=== PATIENT | female | born 1950 | race Two or more races ===

== ENCOUNTER → 2025-04-13 | Outpatient (CLI) | payer MEDICARE, SELFPAY ==
[2025-04-13 14:48] LABS: Collection Type, Urine Clean Catch; RBC,Urine 0 /hpf (0-3); Squamous Epithelial Cell,Urine 0 /hpf (0-5)
[2025-04-13 16:52] LABS: Amorphous Crystals,Urine Present (Absent); Bilirubin,Urine 2+ (Negative); Blood,Urine Negative (Negative); Glucose, Urine Negative (Negative); Ketones,Urine Negative (Negative); Leukocyte Esterase,Urine Negative (Negative); Nitrite,Urine Positive (Negative); Protein,Urine Trace (Neg - Trace); Specific Gravity,Urine 1.022 (1.001-1.035); WBC,Urine 5 /hpf (0-5)
[2025-04-13 16:56] LABS: Clarity,Urine Cloudy (Clear/Hazy)
[2025-04-13 16:57] LABS: Color,Urine Amber (Lt Yel-Yel)
== END | disposition home or self-care (01) ==
LOC: SLDO 14:37
PROVIDERS: Referring Provider Registered Nurse; Visit Provider Registered Nurse
DX: N39.0 Urinary tract infection, site not specified (principal)
CPT/HCPCS: 81001; 87077; 87086; 87186

== ENCOUNTER → 2025-05-17 | Outpatient (CLI) | payer MEDICARE, SELFPAY ==
--- NOTE | 2025-05-17 14:15 | XR_ITS ---
Examination: Screening digital mammography, bilateral Computer aided detection 3-D breast Tomosynthesis, bilateral Date and time of exam: May 17, 2025 1418 hours Compared to mammograms dating to April 20, 2015 Indication: Screening Technique: Nonmagnified MLO, CC views of the breasts to been obtained, reconstructed from 3-D Tomosynthesis images. R2 computer aided detection program utilized for evaluation of suspicious masses and/or abnormal calcifications. 3-D Tomosynthesis images obtained. Findings: Scattered areas of fibroglandular density. Stable nodule 12:00 position right breast with right breast biopsy marker Nodule in the 12:00 position left breast appears more prominent compared to April 20, 2015 Impression: BI-RADS Category 0: Incomplete: Need additional imaging evaluation Recommend follow-up spot tomographic views of nodule 12:00 position left breast as well as left breast sonography to complete the workup
== END | disposition home or self-care (01) ==
LOC: CDIM 14:06
PROVIDERS: Referring Provider Family Medicine; Visit Provider Family Medicine
DX: Z12.31 Encounter for screening mammogram for malignant neoplasm of breast (principal); N63.25 Unspecified lump in the left breast, overlapping quadrants
CPT/HCPCS: 77063; 77067

== ENCOUNTER → 2025-06-08 | Outpatient (CLI) | payer MEDICARE, SELFPAY ==
--- NOTE | 2025-06-08 09:00 | XR_ITS ---
Examination: Breast ultrasound, unilateral, left complete Date and time of exam: June 08, 2025 0908 hours INDICATIONS: Family history breast cancer, mother, sister, mammogram May 27, 2025 nodule 12:00 position left breast Technique: Real-time flores scale ultrasonographic imaging performed left breast including all 4 quadrants as well as nipple retroareolar and axillary region. Findings: No cystic or solid mass IMPRESSION: BI-RADS Category 1: Negative study
--- NOTE | 2025-06-08 09:30 | XR_ITS ---
Examination: Diagnostic digital mammography, unilateral, left Computer aided detection 3-D breast Tomosynthesis, unilateral Date and time of exam: 04/08/2025 0930 hours INDICATIONS: Mammogram May 27, 2025 12:00 nodule left breast Technique: Nonmagnified MLO, CC views of the LEFT breast have been obtained, reconstructed from 3-D Tomosynthesis images. R2 computer aided detection program utilized for evaluation of suspicious masses and/or abnormal calcifications. 3-D Tomosynthesis images obtained. Findings: Scattered areas of fibroglandular density. Nodular asymmetry does persist inner upper left breast on the spot compression views, measuring 10 mm Impression: BI-RADS category 3: Probably benign findings One additional 6 month left mammogram follow-up is needed to document stability of asymmetry described above
[2025-06-08 11:33] LABS: Alanine Aminotransferase 21 U/L (10-49); Albumin, Serum 4.3 gm/dL (3.4-4.8); Albumin/Globulin Ratio 2.0 (1.2-2.2); Alkaline Phosphatase 79 U/L (46-116); Anion Gap 8 (7-16); Aspartate Amino Transferase 28 U/L (0-34); BUN/Creatinine Ratio 18 Ratio (12-20); Bilirubin,Total 0.5 mg/dL (0.3-1.2); Blood Urea Nitrogen 14 mg/dL (9-23); Calcium 9.4 mg/dL (8.3-10.6); Calcium (Corrected) 9.4 mg/dL (8.5-10.1); Carbon Dioxide 28.7 mMol/L (20.0-31.0); Chloride 106 mMol/L (98-107); Creatinine (Component) 0.8 mg/dL (0.6-1.3); Globulin 2.1 gm/dL (2.3-3.5); Glucose 87 mg/dL (74-106); Osmolality,Calculated 284 (275-295); Potassium 4.0 mMol/L (3.4-5.1); Sodium 143 mMol/L (136-145); Total Protein 6.4 gm/dL (5.7-8.2); eGFR > 60 See Note
[2025-06-08 15:20] LABS: Collection Type, Urine Clean Catch
[2025-06-08 17:12] LABS: Bilirubin,Urine Negative (Negative); Blood,Urine Negative (Negative); Clarity,Urine Clear (Clear/Hazy); Color,Urine Lt-Yellow (Lt Yel-Yel); Culture Indicated,Urine Not Indicated; Glucose, Urine Negative (Negative); Ketones,Urine Negative (Negative); Leukocyte Esterase,Urine Negative (Negative); Nitrite,Urine Negative (Negative); PH,Urine 6.5 (5.0-7.0); Protein,Urine Negative (Neg - Trace); RBC,Urine 2 /hpf (0-3); Specific Gravity,Urine 1.017 (1.001-1.035); Squamous Epithelial Cell,Urine < 1 /hpf (0-5); Urobilinogen,Urine Negative mg/dL (0.0-1.0); WBC,Urine < 1 /hpf (0-5)
== END | disposition home or self-care (01) ==
LOC: CDIM 09:50 → COPL 09:59
PROVIDERS: PCP Family Medicine; Referring Provider Registered Nurse; Visit Provider Radiology Diagnostic Radiology
DX: R92.8 Other abnormal and inconclusive findings on diagnostic imaging of breast (principal); R92.332 Mammographic heterogeneous density, left breast; Z00.00 Encounter for general adult medical examination without abnormal findings
CPT/HCPCS: 36415; 76641; 77061; 77065; 80053; 80061; 81001; 82306; 83036; 84443; 85025; G0279

== ENCOUNTER → 2025-06-09 | Outpatient (CLI) | payer MEDICARE, SELFPAY ==
--- NOTE | 2025-06-09 12:40 | XR_ITS ---
Examination: Bone densitometry Date and time of exam:June 09, 2025 1321 hours INDICATIONS: Hysterectomy age 43, personal history osteopenia Technique: Lumbar spine and hip total bone mineralization values of an calculated. Peak reference and age match control results have been displayed. Findings: Lumbar spine total bone mineralization is0.953 gm/cm2. This is 0.9 standard deviations below peak reference. This is 1.4 standard deviations above age-matched controls. Hip total bone mineralization is 0.772 gm/cm2 This is 1.4 standard deviations below peak reference. This is 0.2 standard deviations above age-matched controls Impression: There is normal mineralization based on lumbar spine measurements. There is osteopenia based on hip measurements Lumbar mineralization is decreased 2.5% compared with June 05, 2021 Hip mineralization is decreased 3.3% compared with June 05, 2021
== END | disposition home or self-care (01) ==
PROVIDERS: Referring Provider Registered Nurse; Visit Provider Registered Nurse
DX: M85.88 Other specified disorders of bone density and structure, other site (principal)
CPT/HCPCS: 77080

== ENCOUNTER 2025-07-28 12:35 | Day surgery (SDC) | payer MEDICARE, BC, SELFPAY ==
[2025-07-27 14:53] VITALS: BMI 22.1
[2025-07-28] VITALS (9 sets, daily range): BP systolic 105–142; BP diastolic 48–75; PULSE 69–82; RESP 14–24; TEMP 36.3–36.6; O2SAT 93–100; BMI 21.2
[2025-07-28] MEDS: SODIUM CHLORIDE 0.9% 500 ML 500 ML 20 ML IV (13:54)
[2025-07-28] MEDS: fentaNYL CIT INJ 50 mCg/ML AMP 2ML (ASD USE ONLY) IVP (14:01)
[2025-07-28] MEDS: MIDAZOLAM INJ 1 MG/ML VIAL 2 ML (ASD USE ONLY) 2 MG IVP (14:01)
== END 2025-07-28 15:05 | disposition home or self-care (01) ==
PROVIDERS: PCP Registered Nurse; Referring Provider Specialist; Visit Provider Specialist
PROC: 0DBE8ZX Excision of Large Intestine, Via Natural or Artificial Opening Endoscopic, Diagnostic (ICD-10-PCS; CPT 45380; principal; 2025-07-28 13:00)
DX: Z12.11 Encounter for screening for malignant neoplasm of colon (principal); K64.9 Unspecified hemorrhoids; K57.30 Diverticulosis of large intestine without perforation or abscess without bleeding
CPT/HCPCS: G0121; A4217; A4649; J1200; J2250; J3010; J7999

== ENCOUNTER → 2025-10-03 | Outpatient (CLI) | payer MEDICARE, BC, SELFPAY ==
--- NOTE | 2025-10-03 13:45 | XR_ITS ---
Examination: Abdomen sonogram, Limited Date and time of exam: October 03, 2025, 1344 hours INDICATIONS: Elevated liver function tests on laboratory examination 2 months ago Technique: Real-time flores scale transabdominal sonographic images of the upper abdomen obtained. 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
== END | disposition home or self-care (01) ==
PROVIDERS: PCP Specialist; Referring Provider Specialist; Visit Provider Specialist
DX: R94.5 Abnormal results of liver function studies (principal); K80.20 Calculus of gallbladder without cholecystitis without obstruction
CPT/HCPCS: 76705

== ENCOUNTER 2025-10-13 07:40 | Day surgery (SDC) | payer MEDICARE, BC, SELFPAY ==
[2025-10-13] VITALS (9 sets, daily range): BP systolic 115–141; BP diastolic 58–76; PULSE 58–73; RESP 8–18; TEMP 36.6; O2SAT 97–100; BMI 22.1
[2025-10-13] MEDS: SODIUM CHLORIDE 0.9% 500 ML 500 ML 20 ML IV (09:44)
[2025-10-13] MEDS: BENZOCAINE 20% (Hurricaine) SPRAY 1 DOSE TOP (09:44)
[2025-10-13] MEDS: fentaNYL CIT INJ 50 mCg/ML AMP 2ML (ASD USE ONLY) IVP (09:47)
[2025-10-13] MEDS: MIDAZOLAM INJ 1 MG/ML VIAL 2 ML (ASD USE ONLY) 2 MG IVP (09:47)
--- NOTE | 2025-10-13 11:23 | SUR.PHASEII ---
1030 Pt more awake and alert. Denies pain, difficulty swallowing or N/V. Abd remains soft. Pt tulio PO fluids. 1042 Pt assessment unchanged. No complaints. Amb with steady gait. Able to dress self. Pt and daughter given DC instructions. Both state understanding. Pt meets dc criteria-to home.
== END 2025-10-13 10:42 | disposition home or self-care (01) ==
PROVIDERS: PCP Registered Nurse; Referring Provider Specialist; Visit Provider Specialist
PROC: (CPT 43239; principal; 2025-10-13 11:45)
DX: K20.90 Esophagitis, unspecified without bleeding (principal); K59.01 Slow transit constipation; K57.30 Diverticulosis of large intestine without perforation or abscess without bleeding; K64.8 Other hemorrhoids; K29.50 Unspecified chronic gastritis without bleeding
CPT/HCPCS: 43239; A4649; J1200; J2250; J3010; J7999; A9270